=== PATIENT | male | born 1945 | race Two or more races ===

== ENCOUNTER 2018-08-07 06:52 | Day surgery (SDC) | payer MEDICARE, BC, SELFPAY ==
--- NOTE | 2018-08-03 08:08 | Pre-Procedure Note/Attestation ---
Pre-Procedure Note/Attestation Complete Prior to Procedure Planned Procedure: right Procedure Narrative: 1. CATARACT EXTRACTION WITH PHACO AND PC IOL IMPLANTATION, RIGHT EYE. 2. LIMBAL RELAXING INCISION, RIGHT EYE 3.MALYUGIN RING INSERTION, RIGHT EYE FOR FLOPPY IRIS SYNDROME. 4.COMPLEX CATARACT , RIGHT EYE Indications for Procedure Pre-Operative Diagnosis: 1. CATARACT , RIGHT EYE. 2. ASTIGMATISM, RIGHT EYE. 3. FLOPPY IRIS SYNDROME, RIGHT EYE 4. COMPLEX CATARACT , RIGHT EYE Attestation I attest that I discussed the nature of the procedure; its benefits; risks and complications; and alternatives (and the risks and benefits of such alternatives ), prior to the procedure, with the patient (or the patient's legal field sales representative). I attest that, if there was a reasonable possibility of needing a blood transfusion, the patient (or the patient's legal field sales representative) was given the [facility] standardized written summary, pursuant to the [place] Blood Safety Act ([place] Health and Safety Code # 1645, as amended). I attest that I re-evaluated the patient just prior to the surgery and that there has been no change in the patient's H&P, except as documented below: Ezequiel Swan MD Aug 03, 2018 08:08
[2018-08-07] VITALS (10 sets, daily range): BP systolic 120–146; BP diastolic 57–70
[~2018-08-07] VITALS: Ht 180.3 cm; Wt 79.4 kg
[~2018-08-07 06:52] MED LIST: acetaZOLAMIDE 125mg tab ORAL ONE
[2018-08-07] MEDS ORDERED: EPINEPHrine 1mg/1ml Amp ONE (07:23)
[2018-08-07] MEDS ORDERED: Lidocaine 1% MPF 10mg/ml 5ml ONE (07:23)
[2018-08-07] MEDS ORDERED: Sodium Hyaluronate 10 mg/ml 0.85ml ONE ×2 (07:24→09:17)
[2018-08-07] MEDS ORDERED: BSS 500ml btl ONE (07:24)
[2018-08-07] MEDS ORDERED: Dexamethasone 4mg/ml vial ONE (07:24)
[2018-08-07] MEDS ORDERED: Povidone-Iodine 5% opth solution ONE (07:24)
[2018-08-07] MEDS ORDERED: BSS 15ml BTL ONE (07:24)
[2018-08-07] MEDS: Diclofenac Sod 0.1% Op Soln RIGHT EYE SCH ×3 (07:38→08:01)
[2018-08-07] MEDS: Akten 3.5% 1ml Btl RIGHT EYE SCH ×3 (07:38→08:01)
[2018-08-07] MEDS: Vigamox Opth Soln 3ml RIGHT EYE SCH ×3 (07:39→08:01)
[2018-08-07] MEDS: Phenylephrine 10% Opth Soln 5ml RIGHT EYE SCH ×3 (07:39→08:01)
[2018-08-07] MEDS: Tropicamide 1% Opth 15ml Soln RIGHT EYE SCH ×3 (07:39→08:01)
--- NOTE | 2018-08-07 07:40 | NUR ---
IV LR WAS STARTED BY KILEY SWANSON RN. NO S/S OF INFILTRAION.
[2018-08-07] MEDS ORDERED: OMEPRAZOLE40 M1 ORAL (08:12)
[2018-08-07] MEDS ORDERED: ASPIR-LOW81 MG ORAL (08:12)
[2018-08-07] MEDS ORDERED: ALLOPURINOL300 M1 ORAL (08:12)
[2018-08-07] MEDS ORDERED: CRESTOR10 M2 ORAL (08:12)
[2018-08-07] MEDS ORDERED: LOSARTAN-HCTZ1 EAC2 ORAL (08:12)
[2018-08-07] MEDS ORDERED: Sterile Water Irrig 1000ml IRRIG ONE (09:00)
[2018-08-07] MEDS ORDERED: fentaNYL 100 mcg/2 mL IV ONE (09:00)
[2018-08-07] MEDS ORDERED: NS Irrig 1000ml ONE (09:00)
[2018-08-07] MEDS ORDERED: LR 1000ml ONE (09:00)
[2018-08-07] MEDS ORDERED: Midazolam 2mg/2ml Inj ONE (09:00)
[2018-08-07] MEDS ORDERED: LR 1000ml 1,000 ML IVLG SCH (09:19)
--- NOTE | 2018-08-07 09:23 | Anethesia Preoperative Eval ---
Anesthesia Pre-op PMH/ROS General Date of Evaluation: Aug 07, 2018 Time of Evaluation: 08:41 Anesthesiologist: shawna ASA Score: ASA 3 Mallampati Score Class I : Soft palate, uvula, fauces, pillars visible Class II: Soft palate, uvula, fauces visible Class III: Soft palate, base of uvula visible Class IV: Only hard plate visible Mallampati Classification: Class II Surgeon: faraz Diagnosis: nuclear sclerotic cataract right eye Surgical Procedure: cataract extractiom w/ iol implant right eye Anesthesia History: none Social History: current smoker Family History: no anesthesia problems Allergies: Coded Allergies: PENICILLINS (Verified Allergy, Unknown, 08/07/18) skin rash Medications: see eMAR Patient NPO?: Yes Past Medical History Cardiovascular: Reports: HTN, other - hypercholesterolemia Anesthesia Pre-op Phys. Exam Physician Exam Last Vital Signs Date Time Temp Pulse Resp B/P (MAP) Pulse Ox O2 Delivery O2 Flow Rate FiO2 08/07/18 07:47 97.7 55 20 146/70 100 Room Air Constitutional: NAD Neurologic: CN 2-12 intact Cardiovascular: RRR Respiratory: CTA Gastrointestinal: S/NT/ND Airway Exam Mallampati Score: Class II MO: limited Neck: fleible TMD: 2fb ROM: limited Anesthesia Pre-op A/P Risk Assessment & Plan Assessment: asa3 Plan: mac Status Change Before Surgery: No Pre-Antibiotics Drug: Niya Kirk MD Aug 07, 2018 09:23
[2018-08-07] MEDS ORDERED: Atropine Inj 1mg/10ml Syr IV PRN (09:30)
[2018-08-07] MEDS ORDERED: fentaNYL 100 mcg/2 mL IV PRN (09:30)
[2018-08-07] MEDS ORDERED: DiphenhydrAMINE 50mg/ml Inj IVP PRN (09:30)
[2018-08-07] MEDS ORDERED: Midazolam 2mg/2ml Inj IVP PRN (09:30)
[2018-08-07] MEDS ORDERED: acetaZOLAMIDE 125mg tab ONE (09:51)
--- NOTE | 2018-08-07 10:46 | Immediate Post-Op Evaluation ---
Immediate Post-Op Evalulation Immediate Post-Op Evalulation Procedure: cataract extraction w/ iol implant right eye Date of Evaluation: Aug 07, 2018 Time of Evaluation: 09:54 IV Fluids: lr Blood Products: none Estimated Blood Loss: negligible Blood Pressure Systolic: 132 Blood Pressure Diastolic: 63 Pulse Rate: 45 Respiratory Rate: 18 O2 Sat by Pulse Oximetry: 97 Temperature (Fahrenheit): 97.5 Pain Score (1-10): 0 Nausea: No Vomiting: No Complications none Patient Status: awake, reacts, patent Hydration Status: adequate Drug: Niya Kirk MD Aug 07, 2018 10:46
--- NOTE | 2018-08-07 10:47 | 48 Hour Post Anesthesia Eval ---
Post Anesthesia Evaluation Procedure: cataract extraction w/ iol implant right eye Date of Evaluation: Aug 07, 2018 Time of Evaluation: 09:56 Blood Pressure Systolic: 141 0: 62 Pulse Rate: 51 Respiratory Rate: 18 Temperature (Fahrenheit): 97.5 O2 Sat by Pulse Oximetry: 98 Airway: patent Nausea: No Vomiting: No Pain Intensity: 0 Hydration Status: adequate Cardiopulmonary Status: stable Mental Status/LOC: patient returned to baseline Post-Anesthesia Complications: none Follow-up care needed: N/A Niya Carmona MD Aug 07, 2018 10:47
--- NOTE | 2018-08-07 11:54 | Discharge Summary ---
Discharge Summary Discharge Summary Discharge Summary DATE OF ADMISSION: 08/07/2018 DATE OF DISCHARGE: 08/07/2018 REASON FOR HOSPITALIZATION: 1- Cataract 2- astigmatism SURGERY PERFORMED:1- Cataract extraction with phaco, right eye 2- Limbal relaxing incision ( LRI ), OD CONDITION IN THE HOSPITAL:The patient tolerated the surgery without complications. DISCHARGE CONDITION: The patient was stable at discharge. DISCHARGE MEDICATIONS: 1. Vigamox eye drops one drop q.i.d, OD 2. Prednisolone one drop q.i.d, OD 3. Prolenza one drop QD, OD POSTOPERATIVE ORDERS: The patient has to rest at home. No bending, No lifting, No watching Television tonight. POSTOPERATIVE FOLLOW UP: The patient will be followed in my office tomorrow morning at 7 o'clock. Ezequiel Swan MD Aug 07, 2018 11:54
--- NOTE | 2018-08-07 12:00 | Brief Operative Note ---
Immediate Post Operative Note Operative Note Chief Complaint: Blurry vision difficulty driving and reading Pre-op Diagnosis: 1. CATARACT , RIGHT EYE. 2. ASTIGMATISM, RIGHT EYE. 3. FLOPPY IRIS SYNDROME, RIGHT EYE 4. COMPLEX CATARACT , RIGHT EYE Procedure: 1- cataract extraction with phaco and PC IOl implantation in the right eye 2- Limbal Relaxing Incision ( LRI ), right eye 3- Malyugin ring insertion, OD 4- Complex cataract extraction , right eye Post-op Diagnosis: same as pre-op Surgeon: Ezequiel Swan MD Set Up And Charger: None Additional Surgeons: None Anesthesiologist: Dr. Carmona Anesthesia: MAC Specimen: none Complications: none Condition: stable Fluids: 500ml Estimated Blood Loss: none Drains: none Implant(s) used?: Yes - Multifocal PC IOL implanted in the right eye without complication Ezequiel Swan MD Aug 07, 2018 12:00
--- NOTE | 2018-08-08 08:59 | Operative Note - Dictated ---
DATE OF OPERATION: 08/07/2018 FACILITY: [facility]. SURGEON: Ezequiel Swan M.D. CADD DRAFTER: None. ANESTHESIOLOGIST: Dr. Plata. ANESTHESIA: Monitored anesthesia care (MAC). PREOPERATIVE DIAGNOSES: 1. Cataract of the right eye. 2. Astigmatism of the right eye. 3. Floppy iris syndrome, right eye. 4. Complex cataract, right eye. POSTOPERATIVE DIAGNOSES: 1. Cataract of the right eye. 2. Astigmatism of the right eye. 3. Floppy iris syndrome, right eye. 4. Complex cataract, right eye. SURGERY PERFORMED: 1. Cataract extraction with phacoemulsification and posterior chamber intraocular lens implantation in the right eye. 2. Limbal relaxing incision (LRI) in the right eye. 3. Insertion of Malyugin ring for treatment of floppy iris syndrome in the right eye. 4. Complex cataract removed, right eye. INDICATION FOR SURGERY: The patient is a 72-year-old gentleman with history of benign prostatic hypertrophy, hypertension, and hypercholesterolemia. He is taking medications including Flomax, simvastatin, and antihypertensive medications. He is not a smoker and he is not a drinker. He is not allergic to any medications. He is complaining of blurry vision in the right eye. He has had cataract surgery in the left eye last week and he is happy with the results. On examination of the right eye, the cornea is clear. Anterior chamber is clean and quiet, but very shallow. Pupillary reflex is normal. There is no RAPD. . There is 3+ nuclear sclerosis and 2+ cortical cataract. Funduscopy shows normal optic disc with normal macula, and periphery retina is flat. To improve his vision in the right eye, the cataract has to be removed and posterior chamber intraocular lens has to be implanted. The astigmatism has to be corrected as well. INFORMED CONSENT: The nature of the surgery, risks, benefits, alternatives, and potential complications were explained all in detail to the patient. The potential complications including, but not limited to bleeding, infection, posterior capsular rupture, lens subluxation, flat anterior chamber, iris prolapse, uveitis, corneal edema, macular edema, endophthalmitis, retinal detachment, loss of vision, and even loss of the eye and were all explained in detail to the patient. The patient voiced understanding and accepted all the complications. The alternatives including accommodating lens, multifocal lens, toric lens, and conventional cataract surgery with limbal relaxing incision (LRI) for treatment of astigmatism were all explained in detail to the patient in his language, Farsi. The patient voiced understanding. The patient elected to have cataract surgery with insertion of multifocal lens and removal of astigmatism with limbal relaxing incision. Then, he signed the consent form, which is in the chart. DESCRIPTION OF SURGERY AND FINDINGS: Following that, the patient was taken to the operation room in a stable condition. Lidocaine gel, Akten 3.5% were applied to the conjunctiva of the right eye. IV sedation was given by the anesthesiologist, Dr. Plata. After adequate anesthesia and sedation had been achieved, the right eye was prepped and draped in the sterile fashion for intraocular surgery. Following that, a speculum was placed in the right eye. Before the patient was taken to the operation room, the cornea was marked at 180 and 90 meridian. In the operation room, using a corneal marker and marking pen, the steep meridian of the cornea was marked. Following that, using a halima knife with 550 micron blade, two parallel incisions were placed on the steep meridian of the cornea to treat the astigmatism. Following that, using a Super Sharp knife, a clear corneal side port was created. A 1% lidocaine without preservative (MPF) was injected into the anterior chamber. Viscoelastic agent Healon was injected into the anterior chamber. Following that, a clear corneal temporal keratotomy was performed with a 2.8 mm keratome. Following that, viscoelastic agent was injected into the anterior chamber again. A 7 mm Malyugin ring was injected into the anterior chamber. The coils of the Malyugin ring were engaged with sphincter of the pupil to creat a halima-shaped space for safe phacoemulsification. Following that, a VisionBlue was injection under the viscoelastic agent to stain the anterior capsule of the crystalline lens. Following that, a clear viscoelastic agent was injected into the anterior chamber again. Under the viscoelastic agent, an anterior capsulotomy was performed in the fashion of capsulorrhexis beautifully. Following that, whole viscoelastic agent was removed from the anterior chamber. Following that, using a balanced salt solution, hydrodissection and hydrodelineation was performed and the nucleus was freed. Following that, a clear fresh viscoelastic agent Healon was injected into the anterior chamber to protect the endothelium of the cornea. Following that, using the phacoemulsification machine in the fashion of horizontal chop, the nucleus was removed in toto. Following that, using irrigation aspiration unit, the cortical material was removed from the capsular bag and the capsular bag was polished. Following that, the capsular bag was filled with viscoelastic agent Healon. Following that, a +23.0 diopter foldable IOL with serial number [id number] was injected into the capsular bag. Using the Sinskey hook, the lens was manipulated and put in the proper position. Following that, whole viscoelastic agent was removed from the anterior posterior part of the lens and the anterior chamber was filled with balanced salt solution. Following that, the wound was hydrated with balanced salt solution. Following that, the wound was checked for leakage. There was no leakage. Vigamox eye drops were applied to the conjunctiva of the right eye. The patient tolerated the surgery without complications. At the end of the surgery, the eye was patched with a clear sterile fenestrated shield. Following that, the patient was transferred to the recovery room. In the recovery room, 125 mg Diamox was given by mouth stat. Postoperative orders and directions were given to the patient. The patient will be discharged home upon stabilization. The patient will be followed in my office tomorrow morning. Ezequiel Swan M.D. DR: HARISH JOB#: [id number] CC:
== END 2018-08-07 10:50 | disposition home or self-care (01) ==
LOC: SUR 06:52
DX: H25.811 Combined forms of age-related cataract, right eye (principal); H52.201 Unspecified astigmatism, right eye; H21.81 Floppy iris syndrome; I10 Essential (primary) hypertension; M10.9 Gout, unspecified; E78.00 Pure hypercholesterolemia, unspecified; N40.0 Benign prostatic hyperplasia without lower urinary tract symptoms; Z86.010 Personal history of colon polyps; Z88.0 Allergy status to penicillin; Z79.82 Long term (current) use of aspirin
CPT/HCPCS: 66982; 66999; J0171; J1100; J2250; J3010; 94003; 94150